=== PATIENT | female | born 1955 | race Caucasian/White ===

== ENCOUNTER → 2016-08-12 | Outpatient (CLI) | payer BC ==
[~2016-08-12] MED LIST: ACET-1256 PO; MAGN400T6 PO; PRLSR20 PO
--- NOTE | 2016-08-12 11:56 | DIAGNOSTIC IMAGING REPORT ---
PET/CT HISTORY: Mass CERVICAL CANCER TECHNIQUE: PET/CT was performed from the base of the skull through the pelvis following the intravenous administration of mCi of F18-FDG. Non-contrast CT imaging was performed over the same range without breath-hold for attenuation correction of PET images and anatomic correlation, but not for primary interpretation as it is not of standard diagnostic quality. CT DOSE: COMPARISON: None. FINDINGS: HEAD AND NECK: There is no FDG-avid disease or significant lymphadenopathy in the imaged portions of the head and the neck. CHEST: There is no FDG-avid disease in the chest. There is no axillary, mediastinal, or hilar lymphadenopathy. There is no pleural or pericardial effusion. There is no air-space disease or suspicious lung nodule. ABDOMEN/PELVIS: Below the diaphragm, tracer is distributed physiologically in the gastrointestinal and genitourinary tracts. There is no significant lymphadenopathy and no FDG-avid disease. MUSCULOSKELETAL: There is no FDG-avid or destructive bone lesion. IMPRESSION: There is no definite evidence of recurrent FDG-avid disease. Improved exam compared to prior. No residual or recurrent disease. Electronically signed by: Kishor Matamoros M.D. 08/12/2016 11:55 AM Dictated Date/Time: 08/12/2016 11:49 AM
== END | disposition home or self-care (01) ==
LOC: C.PET 09:23
PROVIDERS: ATTEND Internal Medicine Hematology & Oncology
DX: C53.9 Malignant neoplasm of cervix uteri, unspecified (principal)

== ENCOUNTER → 2017-01-23 | Outpatient (CLI) | payer BC ==
[2015-10-18 14:29] VITALS: BP 144/89; PULSE 83
[2017-01-23 13:47] VITALS: BP_SYST 175; BP_SYST 181; BP_DIAS 73; BP_DIAS 79; PULSE 68; TEMP 36.6; O2SAT 99
--- NOTE | 2017-01-23 16:14 | Radiation Oncology Follow-Up ---
Radiation Oncology Follow-Up Date of Visit Jan 23, 2017. Reason For Visit Nine-month follow-up Radiation Completion Date 07/21/15 Diagnosis (1) Cervical cancer, FIGO stage IIIB Status: Resolved Onset Date: 04/11/2015 Stage: lll (B) Permanent Comment: DIAGNOSIS: Cervical cancer, SCC, FIGO stage IIIB, T1bN1, AJCC stage IIIB Pelvic pain with abnormal abdominal CT 03/23/2015 Finding of a mass of the cervix causing hydronephrosis Status post cervical biopsy 04/11/2015 revealing squamous cell carcinoma Status post bilateral nephrostomy tube placement Status post completion of combined radiation and chemotherapy Chemotherapy comprised of weekly cisplatin Radiation therapy completed 07/21/2015 received 7500 cGy Boost therapy given with IMRT due to inability to place sleeve for HDR therapy. Status post removal of bilateral nephrostomy tubes Last Edited By: Carin Chu on Aug 23, 2015 15:36 History of Present Illness Ms. Keyes is a 61-year-old female who initially presented with a six-month history of pelvic pain and constipation. She did see her primary care physician who ordered a CT abdomen and pelvis on 2014 which revealed a markedly distended endometrium measuring up to 6.5 cm with right-sided hydroureteronephrosis. The patient was referred to Dr. Jhonathan Young who did perform an in office biopsy of a cervical mass found on examination which revealed no conclusive evidence of invasive carcinoma. The patient had an MRI of the pelvis on 2014 which revealed an enlarged anteverted uterus measuring 10.2 cm and a cervical mass measuring at least 4.3 cm. Also noted was a left pelvic lymph node measuring 1.5 cm. The patient was referred to Dr. Sanchez who repeated a biopsy of the cervix which revealed in situ and focal invasive moderately differentiated squamous cell carcinoma. Dr. Sanchez has recommended consideration pelvic chemoradiation therapy followed by HDR brachytherapy. We are now seeing the patient in consultation. She completed radiation therapy 07/21/2015 and received 7500 cGy. She was given boost therapy with IMRT due to inability to place a cervical sleeve for HDR therapy. Interim History She's been doing well over the past 9 months. She denies any change in bowel habits or urination. She has no urinary frequency no urinary urgency. No difficulty with bowel urgency or diarrhea. She's had no vaginal discharge or bleeding. Her appetite is good and weight is stable. She had a PET scan 2016. There was no evidence of recurrent FDG avid disease. No residual or recurrent disease. She has not been using the vaginal dilator. She is not currently sexually active. Allergies Coded Allergies: Iodinated Diagnostic Agents (Verified Allergy, Severe, SHORTNESS OF BREATH , 08/02/15) Iodine (Verified Allergy, Severe, 08/02/15) Shellfish Allergy (Verified Adverse Reaction, Severe, ANAPHYLAXIS, HIVES, 08/02/15) Promethazine (Verified Adverse Reaction, Intermediate, DELIRIUM, 08/02/15) Home Medications Scheduled Omeprazole (Prilosec), 20 MG PO DAILY Scheduled PRN Acetaminophen (Tylenol), 1,000 MG PO Q6H PRN for Pain Review of Systems Gastrointestinal: Symptoms: WNL GI Comments: Diarrhea only assoc. w/eating greasy foods - had before RT; Oral: Symptoms: No Problems Respiratory: Symptoms: WNL Urinary: Symptoms: WNL Comments: 2 voids/night - no change from prior to RT; Skin: Symptoms: No Problems Physical Exam Vital Signs Date Time Temp Pulse Resp B/P (MAP) Pulse Ox O2 Delivery O2 Flow Rate FiO2 01/23/17 13:47 36.6 68 12 175/79 99 181/73 Pain: Side: Bilateral Patient Pain Scale: 0 - 10 Initial Pain Intensity: 0.0 Fatigue: None General Appearance: no apparent distress Eyes: normal inspection, PERRL ENT: normal ENT inspection, hearing grossly normal Neck: no adenopathy, thyroid normal Respiratory/Chest: lungs clear, no respiratory distress, no accessory muscle use Cardiovascular: regular rate, rhythm, no gallop, no murmur Abdomen: non tender, soft, no organomegaly Genitourinary - Female: Normal external genitalia. There is foreshortening of the vagina. There are no visible or palpable lesions of the vagina. There is no vaginal discharge or bleeding. Bimanual examination reveals no masses or tenderness. There is minimal vaginal stenosis. Anal / Rectum: Normal sphincter tone no rectal masses no rectal bleeding Extremities: no pedal edema Neurologic/Psychiatric: no motor/sensory deficits, alert, normal mood/affect Skin: warm/dry Laboratory Studies Test 11/18/16 11:16 White Blood Count 5.34 K/uL (4.8-10.8) Red Blood Count 3.96 M/uL (4.2-5.4) Hemoglobin 12.1 g/dL (12.0-16.0) Hematocrit 36.9 % (37-47) Mean Corpuscular Volume 93.2 fL (80-100) Mean Corpuscular Hemoglobin 30.6 pg (25-34) Mean Corpuscular Hemoglobin Concent 32.8 g/dl (32-36) Platelet Count 295 K/uL (130-400) Mean Platelet Volume 8.4 fL (7.4-10.4) Neutrophils (%) (Auto) 74.1 % Lymphocytes (%) (Auto) 16.1 % Monocytes (%) (Auto) 8.1 % Eosinophils (%) (Auto) 1.1 % Basophils (%) (Auto) 0.4 % Neutrophils # (Auto) 3.96 K/uL (1.4-6.5) Lymphocytes # (Auto) 0.86 K/uL (1.2-3.4) Monocytes # (Auto) 0.43 K/uL (0.11-0.59) Eosinophils # (Auto) 0.06 K/uL (0-0.5) Basophils # (Auto) 0.02 K/uL (0-0.2) RDW Standard Deviation 43.1 fL (36.4-46.3) RDW Coefficient of Variation 12.6 % (11.5-14.5) Immature Granulocyte % (Auto) 0.2 % Immature Granulocyte # (Auto) 0.01 K/uL (0.00-0.02) Sodium Level 143 mmol/L (136-145) Potassium Level 4.1 mmol/L (3.5-5.1) Chloride Level 107 mmol/L (98-107) Carbon Dioxide Level 29 mmol/L (21-32) Anion Gap 7.0 mmol/L (3-11) Blood Urea Nitrogen 24 mg/dl (7-18) Creatinine 1.40 mg/dl (0.60-1.20) Est Creatinine Clear Calc Drug Dose 32.4 ml/min Estimated GFR () 46.6 Estimated GFR (Non- 40.2 BUN/Creatinine Ratio 17.2 (10-20) Random Glucose 89 mg/dl (70-99) Calcium Level 9.2 mg/dl (8.5-10.1) Magnesium Level 2.2 mg/dl (1.8-2.4) Total Bilirubin 0.3 mg/dl (0.2-1) Aspartate Amino Transferase (AST) 19 U/L (15-37) Alanine Aminotransferase (ALT) 23 U/L (12-78) Alkaline Phosphatase 79 U/L (45-117) Lactate Dehydrogenase 185 U/L (84-246) Total Protein 8.1 gm/dl (6.4-8.2) Albumin 4.1 gm/dl (3.4-5.0) Globulin 4.0 gm/dl (2.5-4.0) Albumin/Globulin Ratio 1.0 (0.9-2) CA 125 Antigen 12 U/ML (<35) Additional Studies Patient: GABE KEYES Address1: [address] [facility] Rec: [id number] Address2: Acct ID: [id number] [facility] Zip: [place] [address] Date: 1955 Sex: F Room/Bed: Ref Phy: No Doctor, Assigned SC: C.PET Att Phy: Sherif Rudolph D.O. Report #: [id number] Germaine Phy: No Doctor, Assigned Test: PETCTST Admit Phy: Hand Sewer Shoes: GINNY Interpreting Phy: Kishor Matamoros M.D. Diagnosis: CERVICAL CANCER Ordering Phy: Sherif Rudolph D.O. Service Date: 08/12/16 Admit Date: 08/12/16 MNE: [id number] CONF: DICTATED BY: Kishor Matamoros M.D.]] CC: Sherif Rudolph D.O. No Doctor, Assigned Endcc: [~ rep ct add3]] PET/CT HISTORY: Mass CERVICAL CANCER TECHNIQUE: PET/CT was performed from the base of the skull through the pelvis following the intravenous administration of mCi of F18-FDG. Non-contrast CT imaging was performed over the same range without breath-hold for attenuation correction of PET images and anatomic correlation, but not for primary interpretation as it is not of standard diagnostic quality. CT DOSE: COMPARISON: None. FINDINGS: HEAD AND NECK: There is no FDG-avid disease or significant lymphadenopathy in the imaged portions of the head and the neck. CHEST: There is no FDG-avid disease in the chest. There is no axillary, mediastinal, or hilar lymphadenopathy. There is no pleural or pericardial effusion. There is no air-space disease or suspicious lung nodule. ABDOMEN/PELVIS: Below the diaphragm, tracer is distributed physiologically in the gastrointestinal and genitourinary tracts. There is no significant lymphadenopathy and no FDG-avid disease. MUSCULOSKELETAL: There is no FDG-avid or destructive bone lesion. IMPRESSION: There is no definite evidence of recurrent FDG-avid disease. Improved exam compared to prior. No residual or recurrent disease. Electronically signed by: Kishor Matamoros M.D. 08/12/2016 11:55 AM Dictated Date/Time: 08/12/2016 11:49 AM Assessment & Plan Plan: She'll continue regular follow-up with her primary care physician and Dr. Cyr. She'll have recheck scanning in February with a follow-up appointment afterward with Dr. Cyr. She has an appointment see Dr. Sanchez in March. We asked her to return to our office in 6 months. We'll forego use of the vaginal dilator. She is currently not showing any increase of vaginal's stenosis. Total Time In Follow-Up I spent 20 minutes speaking to the patient and performing examination. Assessment 15 minutes reviewing information in completing this note. Copy To Stanislav Cyr MD; Sherif Sanchez M.D.
== END | disposition home or self-care (01) ==
LOC: C.ONC 13:36
PROVIDERS: ATTEND Physician Assistant Medical
DX: Z51.0 Encounter for antineoplastic radiation therapy (principal); Z92.3 Personal history of irradiation; Z85.41 Personal history of malignant neoplasm of cervix uteri

== ENCOUNTER → 2017-02-20 | Outpatient (CLI) | payer BC ==
[~2017-02-20] MED LIST changes: -MAGN400T6 PO
--- NOTE | 2017-02-20 11:40 | DIAGNOSTIC IMAGING REPORT ---
CT SCAN OF THE ABDOMEN AND PELVIS WITHOUT IV CONTRAST CLINICAL HISTORY: Cervical cancer COMPARISON STUDY: Renal ultrasound dated 02/05/2016. PET/CT dated 08/12/2016. Pelvic MRI dated 06/30/2015. TECHNIQUE: CT scan of the abdomen and pelvis is performed from the lung bases to the proximal femora. Images are reviewed in the axial, sagittal, and coronal planes. IV contrast was not administered for this examination due to a reported history of contrast allergy. Note that the examination is suboptimal without IV contrast. Oral contrast was utilized. A dose lowering technique was utilized adhering to the principles of ALARA. CT DOSE: 338.26 mGycm FINDINGS: Lung bases: The heart is normal in size and without pericardial effusion. The lung bases are clear. Liver: The unenhanced liver is normal in size, contour, and attenuation. There is no intrahepatic biliary ductal dilatation. Gallbladder: Unremarkable. Spleen: Normal in size and attenuation. Pancreas: The unenhanced pancreas is grossly unremarkable. Adrenal glands: Unremarkable. Kidneys: There is asymmetric cortical atrophy of the right kidney as compared to the left. There is moderate right hydroureteronephrosis, not significantly changed from 08/12/2016. There is no left-sided hydronephrosis. No renal calculi are identified. There is no evidence of contour deforming renal mass lesion. Abdominal vasculature: The abdominal aorta is normal in course and caliber noting mild atherosclerotic calcification. Bowel: The small bowel and colon are normal in course and caliber. There is moderate colonic fecal retention. The appendix is well-visualized and normal. Peritoneum: There is no intraperitoneal free air or abdominal ascites. Lymphadenopathy: None. Pelvic viscera: The bladder and uterus are normal as visualized. Surgical clips versus fiducials are seen in the region of the cervix. No obvious mass lesion is identified. No adnexal lesion is seen. There is presacral induration, likely related to previous radiation treatment. Skeletal structures: The skeletal structures are osteopenic. No lytic or blastic lesions are seen. IMPRESSION: 1. There is no evidence of metastatic disease in the abdomen or pelvis identified on this unenhanced examination. 2. Although not well assessed by CT no cervical mass lesion is seen. 3. Presacral soft tissue stranding is likely related to previous radiation treatment. 4. Moderate right hydroureteronephrosis has not significantly changed from 08/12/2016. 5. Additional findings as above. Electronically signed by: Bruce June M.D. 02/20/2017 11:38 AM Dictated Date/Time: 02/20/2017 11:30 AM
--- NOTE | 2017-02-20 11:43 | DIAGNOSTIC IMAGING REPORT ---
(CHEST) THORAX WITHOUT CT DOSE: 165.50 mGycm HISTORY: Cervical carcinoma CERVICAL CANCER TECHNIQUE: Multiaxial CT images of the chest were performed without contrast. A dose lowering technique was utilized adhering to the principles of ALARA. COMPARISON: PET scan 08/12/2016 FINDINGS: The lungs are clear. The mediastinal vascular structures are within normal limits. No mediastinal or hilar lymphadenopathy. No pleural effusion or pneumothorax. Limited views of the upper abdomen demonstrate a normal liver and spleen. IMPRESSION: No acute process. No change from the prior study. The above report was generated using voice recognition software. It may contain grammatical, syntax or spelling errors. Electronically signed by: Kishor Matamoros M.D. 02/20/2017 11:42 AM Dictated Date/Time: 02/20/2017 11:39 AM
== END | disposition home or self-care (01) ==
LOC: C.CTS 10:23
PROVIDERS: ATTEND Internal Medicine Hematology & Oncology
DX: C53.9 Malignant neoplasm of cervix uteri, unspecified (principal); N13.30 Unspecified hydronephrosis

== ENCOUNTER → 2017-07-29 | Outpatient (CLI) | payer BC ==
[2017-07-29 14:18] VITALS: BP 166/88; PULSE 86; TEMP 36.7; O2SAT 99
--- NOTE | 2017-07-29 15:33 | Radiation Oncology Follow-Up ---
Radiation Oncology Follow-Up Date of Visit Jul 29, 2017. Reason For Visit 6 month follow-up Radiation Completion Date 07/21/15 Diagnosis (1) Cervical cancer, FIGO stage IIIB Status: Resolved Onset Date: 04/11/2015 Histology Subtype: squamous cell carcinoma Stage: lll (B) Permanent Comment: DIAGNOSIS: Cervical cancer, SCC, FIGO stage IIIB, T1bN1, AJCC stage IIIB Pelvic pain with abnormal abdominal CT 03/23/2015 Finding of a mass of the cervix causing hydronephrosis Status post cervical biopsy 04/11/2015 revealing squamous cell carcinoma Status post bilateral nephrostomy tube placement Status post completion of combined radiation and chemotherapy Chemotherapy comprised of weekly cisplatin Radiation therapy completed 07/21/2015 received 7500 cGy Boost therapy given with IMRT due to inability to place sleeve for HDR therapy. Status post removal of bilateral nephrostomy tubes Last Edited By: Carin Chu on Aug 23, 2015 15:36 History of Present Illness Ms. Keyes initially presented with a six-month history of pelvic pain and constipation. She did see her primary care physician who ordered a CT abdomen and pelvis on 2014 which revealed a markedly distended endometrium measuring up to 6.5 cm with right-sided hydroureteronephrosis. The patient was referred to Dr. Jhonathan Young who did perform an in office biopsy of a cervical mass found on examination which revealed no conclusive evidence of invasive carcinoma. The patient had an MRI of the pelvis on 2014 which revealed an enlarged anteverted uterus measuring 10.2 cm and a cervical mass measuring at least 4.3 cm. Also noted was a left pelvic lymph node measuring 1.5 cm. The patient was referred to Dr. Sanchez who repeated a biopsy of the cervix which revealed in situ and focal invasive moderately differentiated squamous cell carcinoma. Dr. Sanchez has recommended consideration pelvic chemoradiation therapy followed by HDR brachytherapy. We are now seeing the patient in consultation. She completed radiation therapy 07/21/2015 and received 7500 cGy. She was given boost therapy with IMRT due to inability to place a cervical sleeve for HDR therapy. Interim History She has been doing well over the past 6 months. She denies any change of bowels or urination. She has no vaginal discharge or irritation. She has seen Dr. Dietrich in follow-up and had Pap smear. She also is followed by medical oncology and had recheck CT scans of the chest abdomen and pelvis on 2016. Studies are stable and showing no evidence of recurrent or metastatic disease. 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 She was seen by urology. There was a recommendation for pacemaker of a stent. She declined the stent placement. She plans to consider a stent should she develop pain. She is fearful of having a stent due to the problems she had previously with infection when she had the nephrostomy tube. Allergies Coded Allergies: Iodinated Diagnostic Agents (Verified Allergy, Severe, SHORTNESS OF BREATH , 08/02/15) Iodine (Verified Allergy, Severe, 08/02/15) Shellfish Allergy (Verified Adverse Reaction, Severe, ANAPHYLAXIS, HIVES, 08/02/15) Promethazine (Verified Adverse Reaction, Intermediate, DELIRIUM, 08/02/15) Home Medications Scheduled Omeprazole (Prilosec), 20 MG PO DAILY Scheduled PRN Acetaminophen (Tylenol), 1,000 MG PO Q6H PRN for Pain Review of Systems Gastrointestinal: Symptoms: WNL Oral: Symptoms: Painless Ulcers Respiratory: Symptoms: WNL Urinary: Symptoms: WNL Skin: Symptoms: No Problems Physical Exam Vital Signs Date Time Temp Pulse Resp B/P (MAP) Pulse Ox O2 Delivery O2 Flow Rate FiO2 07/29/17 14:18 36.7 86 18 166/88 99 Fatigue: None General Appearance: no apparent distress Eyes: normal inspection, EOMI ENT: normal ENT inspection, hearing grossly normal Neck: no adenopathy, thyroid normal Respiratory/Chest: lungs clear, no respiratory distress, no accessory muscle use Cardiovascular: regular rate, rhythm, no gallop, no murmur Genitourinary - Female: external genitalia normal, + pertinent finding ( performed by Dr. Olson. there is narrowing of the vagina. Visualization of the cervix is difficult due to posttreatment changes. There is no vaginal discharge. There are no palpable or visible lesions of the vagina. There is no telangiectasia. There is no induration. There is no tenderness to palpation.) Anal / Rectum: Performed by Dr. Olson. Normal sphincter tone. No rectal masses no rectal bleeding. Extremities: no pedal edema Neurologic/Psychiatric: no motor/sensory deficits, alert, normal mood/affect Skin: warm/dry Pain Management Patient Reports Pain: No Pain Location: None Patient Preferred Pain Scale: 0 - 10 Initial Pain Intensity: 0.0 Pain Management Plan She denies pain therefore requires no pain management. Laboratory Laboratory Results: not applicable Pathology Pathology Results: not applicable Imaging Imaging Studies: were reviewed, and pertinent findings noted below Imaging Comments Patient: GABE KEYES Address1: [address] [place] [address] Rec: [id number] Address2: Acct ID: [id number] [facility] Zip: [place] [address] Date: 1955 Sex: F Room/Bed: Ref Phy: No Doctor, Assigned SC: CMarbinCTS Att Phy: Sherif Rudolph D.O. Report #: [id number] Germaine Phy: No Doctor, Assigned Test: CXWO Admit Phy: Voting Machine Repairer: LUZ Interpreting Phy: Kishor Matamoros M.D. Diagnosis: CERVICAL CANCER Ordering Phy: Sherif Rudolph D.O. Service Date: 02/20/17 Admit Date: 02/20/17 MNE: [id number] CONF: DICTATED BY: Kishor Matamoros M.D.]] CC: Sherif Rudolph D.O. No Doctor, Assigned Endcc: [~ rep ct add3]] (CHEST) THORAX WITHOUT CT DOSE: 165.50 mGycm HISTORY: Cervical carcinoma CERVICAL CANCER TECHNIQUE: Multiaxial CT images of the chest were performed without contrast. A dose lowering technique was utilized adhering to the principles of ALARA. COMPARISON: PET scan 08/12/2016 FINDINGS: The lungs are clear. The mediastinal vascular structures are within normal limits. No mediastinal or hilar lymphadenopathy. No pleural effusion or pneumothorax. Limited views of the upper abdomen demonstrate a normal liver and spleen. IMPRESSION: No acute process. No change from the prior study. The above report was generated using voice recognition software. It may contain grammatical, syntax or spelling errors. Electronically signed by: Kishor Matamoros M.D. 02/20/2017 11:42 AM Dictated Date/Time: 02/20/2017 11:39 AM Patient: GABE KEYES Address1: [address] [place] [address] Rec: [id number] Address2: Acct ID: [id number] [facility] Zip: [place] [address] Date: 1955 Sex: F Room/Bed: Ref Phy: No Doctor, Assigned SC: C.CTS Att Phy: Sherif Rudolph D.O. Report #: [id number] Germaine Phy: No Doctor, Assigned Test: APWOR Admit Phy: Voting Machine Repairer: LUZ Interpreting Phy: Bruce June M.D. Diagnosis: CERVICAL CANCER Ordering Phy: Sherif Rudolph D.O. Service Date: 02/20/17 Admit Date: 02/20/17 MNE: [id number] CONF: DICTATED BY: Bruce June M.D.]] CC: Sherif Rudolph D.O. No Doctor, Assigned Endcc: [~ rep ct add3]] CT SCAN OF THE ABDOMEN AND PELVIS WITHOUT IV CONTRAST CLINICAL HISTORY: Cervical cancer COMPARISON STUDY: Renal ultrasound dated 02/05/2016. PET/CT dated 08/12/2016. Pelvic MRI dated 06/30/2015. TECHNIQUE: CT scan of the abdomen and pelvis is performed from the lung bases to the proximal femora. Images are reviewed in the axial, sagittal, and coronal planes. IV contrast was not administered for this examination due to a reported history of contrast allergy. Note that the examination is suboptimal without IV contrast. Oral contrast was utilized. A dose lowering technique was utilized adhering to the principles of ALARA. CT DOSE: 338.26 mGycm FINDINGS: Lung bases: The heart is normal in size and without pericardial effusion. The lung bases are clear. Liver: The unenhanced liver is normal in size, contour, and attenuation. There is no intrahepatic biliary ductal dilatation. Gallbladder: Unremarkable. Spleen: Normal in size and attenuation. Pancreas: The unenhanced pancreas is grossly unremarkable. Adrenal glands: Unremarkable. Kidneys: There is asymmetric cortical atrophy of the right kidney as compared to the left. There is moderate right hydroureteronephrosis, not significantly changed from 08/12/2016. There is no left-sided hydronephrosis. No renal calculi are identified. There is no evidence of contour deforming renal mass lesion. Abdominal vasculature: The abdominal aorta is normal in course and caliber noting mild atherosclerotic calcification. Bowel: The small bowel and colon are normal in course and caliber. There is moderate colonic fecal retention. The appendix is well-visualized and normal. Peritoneum: There is no intraperitoneal free air or abdominal ascites. Lymphadenopathy: None. Pelvic viscera: The bladder and uterus are normal as visualized. Surgical clips versus fiducials are seen in the region of the cervix. No obvious mass lesion is identified. No adnexal lesion is seen. There is presacral induration, likely related to previous radiation treatment. Skeletal structures: The skeletal structures are osteopenic. No lytic or blastic lesions are seen. IMPRESSION: 1. There is no evidence of metastatic disease in the abdomen or pelvis identified on this unenhanced examination. 2. Although not well assessed by CT no cervical mass lesion is seen. 3. Presacral soft tissue stranding is likely related to previous radiation treatment. 4. Moderate right hydroureteronephrosis has not significantly changed from 08/12/2016. 5. Additional findings as above. Electronically signed by: Bruce June M.D. Assessment & Plan Plan: Continue follow-up with medical oncology in the gynecologic oncologist. We'll plan to alternate visits every [address] Jacobsen. We asked her to return to our office in 1 year. She may call if she has any questions or concerns in the interim. Assessment & Plan (Attending) I agree with note created by Carin Chu PA-C. I reviewed the patient's chart and information with her. I have examined and evaluated the patient. I reviewed relevant clinical information and answered the patient's and/or family' s questions. STUDENT OUTREACH COORDINATOR Total Time In Follow-Up I spent 20 minutes speaking to the patient performing examination. I spent 15 minutes reviewing information in completing this note. AK Total Time (Attending) In Follow-Up I spent 15 minutes examining and counseling the patient. STUDENT OUTREACH COORDINATOR Copy To Stanislav Cyr MD; Sherif Sanchez M.D.
== END | disposition home or self-care (01) ==
LOC: C.ONC 14:01
PROVIDERS: ATTEND Physician Assistant Medical
DX: Z08 Encounter for follow-up examination after completed treatment for malignant neoplasm (principal); Z92.3 Personal history of irradiation; Z85.41 Personal history of malignant neoplasm of cervix uteri